=== PATIENT | male | born 1990 | race Two or more races ===

== ENCOUNTER 2017-04-14 23:06 | Emergency (ER) | payer MEDICAID ==
[~2017-04-14] VITALS: Ht 170.2 cm; Wt 65.8 kg
[2017-04-15 01:00] VITALS: BP 133/72
== END 2017-04-16 02:45 | disposition home or self-care (01) ==
LOC: ER 23:06
DX: S62.144A Nondisplaced fracture of body of hamate [unciform] bone, right wrist, initial encounter for closed fracture (principal); W22.8XXA Striking against or struck by other objects, initial encounter; Y93.89 Activity, other specified; Y99.8 Other external cause status; Y92.89 Other specified places as the place of occurrence of the external cause
CPT/HCPCS: 29125; 73130

== ENCOUNTER 2022-03-03 23:24 | Emergency (ER) | payer MEDICAID ==
[~2022-03-03] VITALS: Ht 167.6 cm; Wt 65.9 kg
[2022-03-03 23:32] VITALS: BP 140/103
[2022-03-04] MEDS ORDERED: TETRACAINE HCL 0.5% OPTH(EYE) SOLN 4ML RIGHTEYE ONE (01:30)
[2022-03-04] MEDS ORDERED: FLUORESCEIN SOD OPTH TEST STRIP RIGHTEYE ONE (01:30)
[2022-03-04] MEDS ORDERED: CIP03OS RIGHTEYE (01:53)
== END 2022-03-04 01:58 | disposition home or self-care (01) ==
LOC: ER 23:24
DX: H18.821 Corneal disorder due to contact lens, right eye (principal); J45.909 Unspecified asthma, uncomplicated; Z79.899 Other long term (current) drug therapy